=== PATIENT | male | born 1980 | race Native Hawaiian/Other Pacific Islander ===

== ENCOUNTER 2025-02-20 14:14 | Emergency (ER) | payer BC ==
[~2025-02-20] VITALS: Ht 180.3 cm; Wt 152.8 kg
[2025-02-20] MEDS ORDERED: AMOX TR-K CLV1 EAC1 PO (17:40)
[2025-02-20] MEDS ORDERED: AMOXICILLIN/CLAVULANATE K 875 MG HOME.PACK PO ONE (17:45)
[2025-02-20] MEDS ORDERED: AMOXICILLIN/CLAVULANATE K 875 MG TAB PO ONE (17:45)
[2025-02-20 17:59] VITALS: BP 123/83
[2025-02-23] MEDS ORDERED: TAMSULOSIN HCL0.4 MG PO (22:43)
[2025-02-23] MEDS ORDERED: HYDROCODON-ACE1 EA10 PO (22:43)
== END 2025-02-20 18:00 | disposition home or self-care (01) ==
LOC: ED 14:14 → EDBD 14:15 → ED 14:15
DX: H92.01 Otalgia, right ear (principal)
CPT/HCPCS: 69209; 99282